=== PATIENT | male | born 1995 | race Two or more races ===

== ENCOUNTER 2023-02-16 09:14 | Emergency (ER) | payer BC, OTHER ==
[~2023-02-16] VITALS: Ht 167.6 cm; Wt 77.0 kg
[2023-02-16 09:47] VITALS: BP 123/84
[2023-02-16] MEDS ORDERED: ACETAMINOPHEN 500 MG TAB PO ONE (10:00)
[2023-02-16] MEDS ORDERED: CYCL-839 PO (11:14)
[2023-02-16] MEDS ORDERED: IBUP600T28 PO (11:14)
== END 2023-02-16 11:35 | disposition home or self-care (01) ==
LOC: EDBD 09:14 → ER 09:14
DX: S27.892A Contusion of other specified intrathoracic organs, initial encounter (principal); V89.2XXA Person injured in unspecified motor-vehicle accident, traffic, initial encounter; Y93.89 Activity, other specified; Y92.89 Other specified places as the place of occurrence of the external cause; Y99.8 Other external cause status
CPT/HCPCS: 71101; 72125